=== PATIENT | male | born 1975 | race Caucasian/White ===

== ENCOUNTER 2017-02-15 15:59 | Emergency (ER) | payer SELFPAY ==
--- NOTE | 2017-02-15 17:31 | RAD ---
INDICATION: Pain and swelling following crush injury. COMPARISON: No relevant prior exams available on the [facility] PACS for comparison. TECHNIQUE: AP, lateral, and oblique views LEFT hand. REPORT AND IMPRESSION: Negative for fracture or malalignment. Diffuse soft tissue swelling most prominent at the fingers. No subcutaneous emphysema or conspicuous foreign body.
--- NOTE | 2017-02-15 17:42 | ED ---
Upper Extremity Pain - HPI Summary HPI Summary: 42 male presents to ED with complaints of left hand getting slammed shut in a heavy storm door while at work. Patient states since he has been having increasing pain and swelling. Incident occurred around 8am. Attempted to continue working however hand swelled so significant was unable to move completely. Patient admits to bruising. Denies any other injuries. Pain does radiate into wrist at times. Movement makes pain worse and rest makes pain better. No other complaints. PMHx significant for GERD and HTN. Has not taken any medication for injury. This is a workers compensation case. Is right hand dominant. Denies numbness/tingling. 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 - History of Current Complaint Chief Complaint: EDExtremityUpper Stated Complaint: LT HAND PAIN/SWELLING/REDNESS Hx Obtained From: Patient Mechanism Of Injury: Blunt Trauma - crushed Onset/Duration: Started Hours Ago, Traumatic, Still Present, Worse Since Timing: Constant Severity Initially: Moderate Severity Currently: Moderate Pain Location: Hand - left Character: Sharp, Aching, Stiffness Aggravating Factor(s): Movement Alleviating Factor(s): Rest Associated Signs & Symptoms: Positive: Swelling, Bruising Related History: Dominant Hand Right - Allergies/Home Medications Allergies/Adverse Reactions: Allergies Allergy/AdvReac Type Severity Reaction Status Date / Time Amoxicillin Allergy Intermediate Diarrhea Verified 04/22/16 14:29 Fish Allergy Allergy Anaphylatic Verified 04/22/16 14:29 Shock CATS Allergy Hives Uncoded 04/22/16 14:29 PINE TREES Allergy SEVERE RASH Uncoded 04/22/16 14:29 PMH/Surg Hx/FS Hx/Imm Hx Endocrine/Hematology History: Denies: Hx Diabetes Cardiovascular History: Reports: Hx Hypertension - ON MEDS Denies: Hx Pacemaker/ICD GI History: Reports: Hx Gastroesophageal Reflux Disease - CONTROL WITH MED History: Denies: Hx Dialysis, Hx Renal Disease Sensory History: Denies: Hx Contacts or Glasses, Hx Hearing Aid Opthamlomology History: Denies: Hx Contacts or Glasses Psychiatric History: Denies: Hx Panic Disorder - Surgical History Surgery Procedure, Year, and Place: AGE 5 OR 6, APPENDECTOMY. AGE 5 BILATERAL MYRINGOTOMY WITH TUBE INSERTION,. 2006 RIGHT HAND SURGERY, [place]. 2007 SEPTOPLASTY, [facility]. 2007 TONSILLECTOMY, [facility]. 2015 EXCISION HIDRADENTIS RIGHT CHEST AND RIGHT GROIN, [facility]. 03/27/2016 ANORECTAL EXAM UNDER ANESTHESIA WITH SETON SUTURE PLACEMENT, [facility] Hx Anesthesia Reactions: No - Immunization History Immunizations Up to Date: Yes Infectious Disease History: No Infectious Disease History: Denies: Traveled Outside the [place] in Last 30 Days - Family History Known Family History: Positive: Cardiac Disease, Hypertension - Social History Alcohol Use: Occasionally Substance Use Type: Reports: None Smoking Status (MU): Never Smoked Tobacco Have You Smoked in the Last Year: No Review of Systems Constitutional: Negative Cardiovascular: Negative Respiratory: Negative Positive: Arthralgia, Myalgia, Decreased ROM - left hand, Edema Positive: Bruising Neurological: Negative All Other Systems Reviewed And Are Negative: Yes Physical Exam Triage Information Reviewed: Yes Vital Signs On Initial Exam: Initial Vitals Temp Pulse Resp BP Pulse Ox 98.5 F 89 17 163/97 94 02/15/17 16:07 02/15/17 16:07 02/15/17 16:07 02/15/17 16:07 02/15/17 16:07 BP noted, improved at discharge, patient is in pain and already diagnosed with HTN. under control, still has to take evening meds. follow up with pcp for recheck Vital Signs Reviewed: Yes Appearance: Positive: Well-Appearing, No Pain Distress, Well-Nourished, Obese Skin: Positive: Warm, Skin Color Reflects Adequate Perfusion, Dry, Other - ecchymosis and edema noted over posterior left hand, contusion. Negative: Cold , Tender, Cyanosis @, Pale, Erythema @ Head/Face: Positive: Normal Head/Face Inspection Eyes: Positive: Conjunctiva Clear ENT: Positive: Hearing grossly normal Neck: Positive: Supple, Nontender Respiratory/Lung Sounds: Positive: Clear to Auscultation, Breath Sounds Present. Negative: Rales, Rhonchi, Wheezes Cardiovascular: Positive: Normal, RRR, Pulses are Symmetrical in both Upper and Lower Extremities - 2+ radial b/l. cap refill < 2 seconds. Negative: Murmur, Rub Musculoskeletal: Positive: Limited @ - unable to make complete fist with left hand/fingers due to pain and swelling. Does have some flexion capability, extension is intact. rest of MSK exam normal strength and ROM, Pain @ - on palpation of left hand posteriorly, contusion, Edema Left - posterior/dorsum of left hand. Negative: Interruption @ Neurological: Positive: Normal, Sensory/Motor Intact - intact, Alert, Oriented to Person Place, Time, Reflexes Intact, NV Bundle Intact Distally, Normal Gait Diagnostics - Vital Signs Vital Signs Temp Pulse Resp BP Pulse Ox 02/15/17 16:07 98.5 F 89 17 163/97 94 - Laboratory Lab Statement: Any lab studies that have been ordered have been reviewed, and results considered in the medical decision making process. - Radiology left hand Xray Interpretation: No Acute Changes - Negative for fracture or malalignment. Diffuse soft tissue swelling most prominent at the fingers. No subcutaneous emphysema or conspicuous foreign body. Radiology Interpretation Completed By: Radiologist Course/Dx - Course Course Of Treatment: xray obtained and negative for fracture or dislocation. appears to have suffered a crush injury/contusion from impact. given ibuprofen/ tylenol for pain and inflammation. arun bandage applied for support and compression. follow up with [facility] as patient is already established. Follow up with PCP as well. Aware of worsening signs and symptoms to watch out for. Continue tylenol, RICE at home. Patient agrees, understands and is aware of plan. OFF work note given. This was a workers comp case. - Diagnoses Differential Diagnosis/HQI/PQRI: Positive: Contusion, Fracture (Closed), Hematoma, Strain, Sprain Provider Diagnoses: Contusion of left hand Discharge - Discharge Plan Condition: Stable Disposition: HOME Patient Education Materials: Contusion in Adults (ED) Referrals: Efrain Lyles MD [Primary Care Provider] - Additional Instructions: Continue Tylenol as needed for pain. Aleve as needed, sparingly. Rest, ice, elevate and continue arun bandage for compression to help with swelling. Ice 20minutes on and 20 minutes off. Follow up with ortho/pcp. Return if new or worsening symptoms.
[2017-02-15] MEDS ORDERED: Acetaminophen TAB* 325 MG PO ONE (18:05)
[2017-02-15] MEDS ORDERED: Ibuprofen TAB* 400 MG ONE (18:17)
[2017-02-15] MEDS ORDERED: Ibuprofen TAB* 400 MG PO ONE (18:18)
[2017-02-15 18:25] VITALS: BP 158/84
== END 2017-02-15 18:24 | disposition home or self-care (01) ==
LOC: ED 15:59
DX: S60.222A Contusion of left hand, initial encounter (principal); Z86.79 Personal history of other diseases of the circulatory system; W23.0XXA Caught, crushed, jammed, or pinched between moving objects, initial encounter; Y93.9 Activity, unspecified; Y92.9 Unspecified place or not applicable
CPT/HCPCS: 99282; A9270-GY

== ENCOUNTER 2017-09-14 16:35 | Emergency (ER) | payer BC, OTHER ==
[2017-09-14 16:57] VITALS: BP 122/86
[2017-09-14] MEDS ORDERED: Ibuprofen TAB* 400 MG PO ONE (17:24)
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
== END 2017-09-14 18:45 | disposition home or self-care (01) ==
LOC: UCEAST 16:35
DX: M62.838 Other muscle spasm (principal); I10 Essential (primary) hypertension; Z88.0 Allergy status to penicillin
CPT/HCPCS: 72020; 72040; 72070; 72100; 99213; A9270-GY; G0463

== ENCOUNTER 2019-06-21 11:01 | Emergency (ER) | payer BC ==
--- NOTE | 2019-06-21 11:13 | ED ---
Syncope/Near Syncope - HPI Summary HPI Summary: This patient is a 43 year old male brought in by EMS accompanied by his presenting to [facility] with a chief complaint of syncope. He states he was getting blood drawn at his PCP when he was out in the waiting room after when he had a syncopal episode. He states he was experiencing dizziness prior to the episode. He states during the episode his dizziness was getting worse after having 4 cups of water, the room was spinning, he had skin diaphoresis, tunnel vision, and then he remembers waking up with 5-6 nurses around him after that. states he was unresponsive for several minutes. She states he was shaking while he was unresponsive. The patient says he has experienced dizziness over several months and has been worked up for it including MRI but they could not find an explanation for it. Patient recently had a sleep study which has indicated sleep apnea. BP in room is 94/58. Medications reviewed, allergies noted. - History Of Current Complaint Hx Obtained From: Patient Onset/Duration: Lasting Minutes Context: Witnessed, Loss Of Consciousness Associated Signs And Symptoms: Diaphoresis - Allergies/Home Medications Allergies/Adverse Reactions: Allergies Allergy/AdvReac Type Severity Reaction Status Date / Time amoxicillin Allergy Diarrhea Verified 06/21/19 11:20 Fish Containing Products Allergy Anaphylatic Verified 06/21/19 11:20 Shock CATS Allergy Hives Uncoded 06/21/19 11:20 PINE TREES Allergy SEVERE RASH Uncoded 06/21/19 11:20 Home Medications: Home Medications Metformin HCl 1,000 mg PO BID 06/21/19 [History Confirmed 06/21/19] PMH/Surg Hx/FS Hx/Imm Hx Endocrine/Hematology History: Denies: Hx Diabetes Cardiovascular History: Reports: Hx Hypertension - ON MEDS Denies: Hx Pacemaker/ICD Comment Only: Other Cardiovascular Problems/Disorders - high blood pressure GI History: Reports: Hx Gastroesophageal Reflux Disease - CONTROL WITH MED History: Denies: Hx Dialysis, Hx Renal Disease Sensory History: Denies: Hx Contacts or Glasses, Hx Hearing Aid Opthamlomology History: Denies: Hx Contacts or Glasses Psychiatric History: Denies: Hx Panic Disorder - Surgical History Surgery Procedure, Year, and Place: AGE 5 OR 6, APPENDECTOMY. AGE 5 BILATERAL MYRINGOTOMY WITH TUBE INSERTION,. 2006 RIGHT HAND SURGERY, [place]. 2007 SEPTOPLASTY, [facility] [place]. 2007 TONSILLECTOMY, [facility] [place]. 2015 EXCISION HIDRADENTIS RIGHT CHEST AND RIGHT GROIN, [facility] [place]. 03/27/2016 ANORECTAL EXAM UNDER ANESTHESIA WITH SETON SUTURE PLACEMENT, [facility] [place] Hx Anesthesia Reactions: No - Family History Known Family History: Positive: Cardiac Disease, Hypertension - Social History Alcohol Use: Rare Substance Use Type: Reports: None Smoking Status (MU): Never Smoked Tobacco Have You Smoked in the Last Year: No Review of Systems Positive: Skin Diaphoresis Positive: Other - Tunnel vision Neurological/Mental Status: Other - Dizziness, shaking while unresponsive Positive: Syncope All Other Systems Reviewed And Are Negative: Yes Physical Exam - Summary Physical Exam Summary: Constitutional: Well-developed, Well-nourished, Alert. (-) Distressed Skin: Warm, Dry HENT: Normocephalic; Atraumatic Eyes: Conjunctiva normal Neck: Musculoskeletal ROM normal neck. (-) JVD, (-) Stridor, (-) Tracheal deviation Cardio: Rhythm regular, rate normal, Heart sounds normal; Intact distal pulses; The pedal pulses are 2+ and symmetric. Radial pulses are 2+ and symmetric. (-) Murmur Pulmonary/Chest wall: Effort normal. (-) Respiratory distress, (-) Wheezes, (-) Rales Abd: Soft. (-) Tenderness, (-) Distension, (-) Guarding, (-) Rebound Musculoskeletal: (-) Edema Lymph: (-) Cervical adenopathy Neuro: Alert, Oriented x3, Strength normal, Cranial nerves II-XII are grossly intact. (-) Dysmetria, (-) Nystagmus, (-) Ataxia by finger to nose testing, (-) Sensory deficit. Psych: Mood and affect Normal GCS: 15 Triage Information Reviewed: Yes Vital Signs Reviewed: Yes Procedures - Sedation Patient Received Moderate/Deep Sedation with Procedure: No Diagnostics - Laboratory Result Diagrams: 06/21/19 11:26 06/21/19 11:26 Lab Statement: Any lab studies that have been ordered have been reviewed, and results considered in the medical decision making process. - EKG 1132 Cardiac Rate: NL - 78 BPM EKG Rhythm: Sinus Rhythm Summary of EKG Findings: No STEMI. ED Physician has reviewed and interpreted this EKG. National Institutes Of Health - NIH Scale Level of Consciousness: Alert/Keenly Responsive Ask Patient the Month and His/Her Age: Both Correct Ask Pt to Open/Close Eyes and [employer]/Release Non-Paretic Hand: Both Correctly Best Gaze (Only Horizontal Eye Movement): Normal Visual Field Testing: No Visual Loss Facial Paresis-Pt to Smile & Close Eyes or [place] Symmetry: Normal/Symmetrical Motor Function - Right Arm: No Drift-Holds 10 Seconds Motor Function - Left Arm: No Drift-Holds 10 Seconds Motor Function - Right Leg: No Drift-Holds 10 Seconds Motor Function - Left Leg: No Drift-Holds 10 Seconds Limb Ataxia-Must be out of Proportion to Weakness Present: Absent Sensory (Use Pinprick to Test Arms/Legs/Trunk/Face): Normal Best Language (Describe Picture, Name Items): No Aphasia Dysarthria (Read Several Words): Normal Extinction and Inattention: No Abnormality Total Score: 0 Course/Dx Course Of Treatment: Patient is here with an episode of syncope. Patient's been dealing with dizziness and presyncope for the past year. Patient's had multiple scans including an MRI of his brain which have been negative. Patient was at the lab getting blood and urine tests when he had a syncopal episode. Patient had tunnel vision with loss of consciousness. Patient was back to baseline upon arrival here. Patient was [place] hypotensive initially. Patient's blood pressure responded to a liter of IV fluids. Patient had blurred performed which showed an elevated creatinine. Patient did have vomiting and diarrhea this weekend but was drinking lots of fluid. This could be related to dehydration versus a medication side effect. Patient had a normal neurologic exam upon arrival with an NIH stroke scale of 0. Patient had an EKG which showed no signs of arrhythmia. Patient was overall low risk given his normal cardiac workup and neuro workup, patient was given cardiology for follow-up - Diagnoses Provider Diagnoses: Syncope, Acute kidney injury Discharge ED - Sign-Out/Discharge Documenting (check all that apply): Patient Departure - discharge - Discharge Plan Condition: Stable Disposition: HOME Patient Education Materials: Acute Kidney Injury (DC), Syncope (ED) Referrals: Efrain Lyles MD [Primary Care Provider] - 3 Days Additional Instructions: PLEASE FOLLOW UP WITH YOUR PRIMARY CARE PHYSICIAN AND CARDIOLOGY. YOU MIGHT NEED A HOLTER MONITOR. PLEASE RETURN TO ED FOR ANY PALPITATIONS, CHEST PAIN, DIFFICULTY BREATHING, OR ANY OTHER CONCERNING SYMPTOMS. - Billing Disposition and Condition Condition: STABLE Disposition: Home - Attestation Statements Document Initiated by Scribe: Yes Documenting Scribe: Kiel Ray Provider For Whom Scribe is Documenting (Include Credential): Jeremy Dumas MD Scribe Attestation: Kiel Leigh, scribed for Jeremy Dumas MD on 06/21/19 at 1631. Scribe Documentation Reviewed: Yes Provider Attestation: The documentation as recorded by the thuibe, Kiel Ray accurately reflects the service I personally performed and the decisions made by me, Jeremy Dumas MD Status of Scribe Document: Viewed
[2019-06-21] MEDS ORDERED: NS 0.9% 1000 ML** 1,000 ML IV ONE (11:19)
[2019-06-21 11:40] LABS: ABS Basophils 0.1 10^3/ul (0-0.2); ABS Eosinophils 0.1 10^3/ul (0-0.6); ABS Lymphocytes 1.4 10^3/ul (1.0-4.8); ABS Monocytes 0.8 10^3/ul (0-0.8); ABS Neutrophils 6.6 10^3/ul (1.5-7.7); Eosinophil % 0.8 %; Hematocrit 42 % (42-52); Hemoglobin 14.1 g/dL (14.0-18.0); Lymphocyte % 15.4 %; Mean Corpuscular HGB Conc 34 g/dL (31-36); Mean Corpuscular Hemoglobin 29 pg (27-31); Mean Corpuscular Volume 87 fL (80-94); Nucleated Red Blood Cells % 0.1; Platelet Count 294 10^3/uL (150-450); Red Blood Count 4.84 10^6 /uL (4.18-5.48); Red Cell Distribution Width 14 % (10-15)
[2019-06-21 12:04] LABS: Albumin 3.8 g/dL (3.2-5.2); Albumin/Globulin Ratio 1.2 (1-3); BUN/Creatinine Ratio 9.2 (8-20); Calcium 8.8 mg/dL (8.6-10.3); EGFR African American 72.3 (>60); EGFR Non-African American 59.7 (>60); Globulin 3.3 g/dL (2-4); Potassium 3.4 mmol/L (3.5-5.0); Total Bilirubin 0.7 mg/dL (0.2-1.0); Total Protein 7.1 g/dL (6.4-8.9)
[2019-06-21 14:00] VITALS: BP 113/66
== END 2019-06-21 13:50 | disposition home or self-care (01) ==
LOC: ED 11:01
DX: R55 Syncope and collapse (principal); S37.009A Unspecified injury of unspecified kidney, initial encounter; X58.XXXA Exposure to other specified factors, initial encounter; Y92.9 Unspecified place or not applicable; R61 Generalized hyperhidrosis; I10 Essential (primary) hypertension; K21.9 Gastro-esophageal reflux disease without esophagitis; Z88.0 Allergy status to penicillin; Z91.013 Allergy to seafood; Z91.09 Other allergy status, other than to drugs and biological substances
CPT/HCPCS: 36415; 80053; 83880; 84484; 85025; 93005; 96360; 96361; 99284